=== PATIENT | male | born 1985 | race Caucasian/White ===

== ENCOUNTER 2017-08-06 19:01 | Emergency (ER) | payer OTHER ==
[2017-08-06 19:11] VITALS: RESP 16; TEMP 98.1
[2017-08-06] MEDS ORDERED: ONDANSETRON 4 MG/2 ML VIAL IVP ONE (19:23)
[2017-08-06] MEDS ORDERED: NS 1,000 ML IV ONE (19:23)
[2017-08-06] MEDS ORDERED: IOPAMIDOL (ISOVUE-300) 100 ML BTL ONE ×2 (19:27→19:57)
--- NOTE | 2017-08-06 19:27 | EDPHY ---
H & P Time Seen by Provider: 08/06/17 19:15 HPI/ROS: CHIEF COMPLAINT: Left lower quadrant abdominal pain HISTORY OF PRESENT ILLNESS: The patient is a 31-year-old male with a history abdominal pain over the past few months. He initially had right lower quadrant abdominal pain. Last week he was evaluated with ultrasound and blood work which were both negative. 2 days ago he developed left lower quadrant pain. His doctor diagnosed him with possible diverticulitis and started on ciprofloxacin and Flagyl. He has had 1 previous reported episode of diverticulitis. This was diagnosed clinically. The patient denies fevers or chills. He has had no vomiting. He reports mild nausea but thinks this is secondary to the antibiotics. He has had no blood in his stool. No dark or target stool. REVIEW OF SYSTEMS: My complete review of systems is negative except as mentioned in the HPI. Past Medical/Surgical History: Includes diverticulitis Past surgical history: Negative Social history: The patient does not smoke. Smoking Status: Never smoked Physical Exam: 36.7, 142/94, 100, 16, 91% on room air GENERAL: Well-appearing, in no acute distress, alert. HEENT: Eyes normal to inspection, normal pharynx, no signs of dehydration. NECK: No thyromegaly, no lymphadenopathy, supple. RESPIRATORY: Clear to auscultation bilaterally, no rales, rhonchi or wheezing. CVS: Regular rate and rhythm, no rubs, murmurs, or gallops. ABDOMEN: Soft, left lower quadrant pain with no rebound or guarding, nondistended, no organomegaly. BACK: Normal to inspection, no CVA tenderness. SKIN: Normal color, no rash, warm, dry. No pallor. EXTREMITIES: No pedal edema, no calf tenderness, no Homans sign or cords, no joint swelling. NEURO/PSYCH: Alert and oriented, normal mood and affect, normal motor sensory exam. Constitutional: Initial Vital Signs Temperature (C) 36.7 C 08/06/17 19:07 Heart Rate 100 08/06/17 19:07 Respiratory Rate 16 08/06/17 19:07 Blood Pressure 142/94 H 08/06/17 19:07 O2 Sat (%) 91 L 08/06/17 19:07 O2 Delivery Mode Room Air Allergies/Adverse Reactions: No Known Allergies Allergy (Unverified 08/06/17 19:07) Home Medications: Medication Instructions Recorded Cipro 08/06/17 Clobetasol Propionate 08/06/17 Metronidazole 08/06/17 Medical Decision Making - Diagnostics Imaging Results: Imaging Impressions Abdomen/Pelvis CT 08/06/17 19:24 Impression: 1. Mild diverticulitis distal descending colon proximal sigmoid colon at the level of the iliac crest on the left. 2. Uncomplicated diverticula are seen throughout the colon otherwise. Findings discussed with Cinda Cullen M.D. at 20:24 hour, 08/06/2017. ED Course/Re-evaluation: In the emergency department I discussed possible etiologies with the patient. I answered all his questions. IV was placed. Patient was given normal saline 1 L IV for hydration. He is given Zofran 4 mg IV for nausea and morphine 4 mg IV for pain control. The laboratory studies and CT scan were ordered. Patient's white count was elevated at 12. The chemistry panel was notable for an elevated creatinine of 1.7. BUN was normal. Because of the elevated creatinine patient's CT scan was switched from IV contrast to noncontrast study. CT of the abdomen pelvis: Please refer the dictated report by Dr. Washington Evans. Patient does have mild diverticulitis. No abscess or fistula. No other abnormality. I discussed the results with the patient. I answered all his questions. He will continue the Cipro and Flagyl. The patient was made aware of his elevated creatinine 1.7. I instructed that his primary care physician needs to follow up on this value. The patient was given warnings prior to leaving. He will return with worsening symptoms. Differential Diagnosis: My differential includes but is not limited to diverticulitis, diverticular abscess, obstruction, perforation, volvulus - Data Points Laboratory Results: Laboratory Results 08/06/17 19:15 08/06/17 19:15 08/06/17 08/06/17 08/06/17 20:10 19:15 19:15 WBC 12.13 10^3/uL H 10^3/uL (3.80-9.50) RBC 4.95 10^6/uL 10^6/uL (4.40-6.38) Hgb 15.8 g/dL g/dL (13.7-17.5) Hct 45.6 % % (40.0-51.0) MCV 92.1 fL fL (81.5-99.8) MCH 31.9 pg pg (27.9-34.1) MCHC 34.6 g/dL g/dL (32.4-36.7) RDW 12.6 % % (11.5-15.2) Plt Count 193 10^3/uL 10^3/uL (150-400) MPV 9.3 fL fL (8.7-11.7) Neut % (Auto) 73.1 % % (39.3-74.2) Lymph % (Auto) 16.4 % % (15.0-45.0) Roosevelt % (Auto) 8.8 % % (4.5-13.0) Eos % (Auto) 0.9 % % (0.6-7.6) Baso % (Auto) 0.4 % % (0.3-1.7) Nucleat RBC Rel Count 0.0 % % (0.0-0.2) Absolute Neuts (auto) 8.86 10^3/uL H 10^3/uL (1.70-6.50) Absolute Lymphs (auto) 1.99 10^3/uL 10^3/uL (1.00-3.00) Absolute Monos (auto) 1.07 10^3/uL H 10^3/uL (0.30-0.80) Absolute Eos (auto) 0.11 10^3/uL 10^3/uL (0.03-0.40) Absolute Basos (auto) 0.05 10^3/uL 10^3/uL (0.02-0.10) Absolute Nucleated RBC 0.00 10^3/uL 10^3/uL (0-0.01) Immature Gran % 0.4 % % (0.0-1.1) Immature Gran # 0.05 10^3/uL 10^3/uL (0.00-0.10) Sodium 140 mEq/L mEq/L (135-145) Potassium 3.9 mEq/L mEq/L (3.5-5.2) Chloride 103 mEq/L mEq/L (97-110) Carbon Dioxide 25 mEq/l mEq/l (22-31) Anion Gap 12 mEq/L mEq/L (8-16) BUN 19 mg/dL mg/dL (7-23) Creatinine 1.7 mg/dL H mg/dL (0.7-1.3) Estimated GFR 47 Glucose 97 mg/dL mg/dL (70-100) Calcium 9.3 mg/dL mg/dL (8.5-10.4) Urine Color PALE YELLOW Urine Appearance CLEAR Urine pH 5.0 (5.0-7.5) Ur Specific Keyes 1.004 (1.002-1.030) Urine Protein NEGATIVE (NEGATIVE) Urine Ketones NEGATIVE (NEGATIVE) Urine Blood 2+ H (NEGATIVE) Urine Nitrate NEGATIVE (NEGATIVE) Urine Bilirubin NEGATIVE (NEGATIVE) Urine Urobilinogen NEGATIVE EU EU (0.2-1.0) Ur Leukocyte Esterase NEGATIVE (NEGATIVE) Urine RBC 1-3 /hpf /hpf (0-3) Urine WBC 1-3 /hpf /hpf (0-3) Ur Epithelial Cells NONE SEEN /lpf /lpf (NONE-1+) Urine Mucus TRACE /lpf /lpf (NONE-1+) Urine Glucose NEGATIVE (NEGATIVE) Medications Given: Discontinued Medications Hydrocodone Bitart/Acetaminophen (Dol[place] 5/325mg Prepack#6) 1 btl TAKEHOME EDNOW ONE Stop: 08/06/17 20:40 Last Admin: 08/06/17 20:42 Dose: 1 btl Sodium Chloride (Ns) 1,000 mls @ 0 mls/hr IV EDNOW ONE; Wide Open PRN Reason: Protocol Stop: 08/06/17 19:24 Last Admin: 08/06/17 19:33 Dose: 1,000 mls Morphine Sulfate (Morphine) 4 mg IVP EDNOW ONE Stop: 08/06/17 19:24 Last Admin: 08/06/17 20:06 Dose: 4 mg Ondansetron HCl (Zofran) 4 mg IVP EDNOW ONE Stop: 08/06/17 19:24 Last Admin: 08/06/17 19:33 Dose: 4 mg Departure - Departure Disposition: Home, Routine, Self-Care Clinical Impression: Diverticulitis Abdominal pain Qualifiers: Abdominal location: left lower quadrant Qualified Code(s): R10.32 - Left lower quadrant pain Condition: Good Instructions: Hydrocodone/Acetaminophen (By mouth), Abdominal Pain (ED) Additional Instructions: Your CT scan showed diverticulitis with no complication. Your labs were remarkable for an elevated creatinine of 1.7. This will need to be followed-up by your primary care physician. Continue to take your antibiotics as directed. Take the entire course. Referrals: JURGEN COONEY [Non Staff Provider ()] - 1-2 days without fail
[2017-08-06 19:36] LABS: PLATELET COUNT 193 10^3/uL (150-400)
[2017-08-06] MEDS ORDERED: HYDROCOD/APAP 5/325 PREPACK#6 BTL TAKEHOME ONE (20:39)
[2017-08-06 20:49] VITALS: BP 147/104; PULSE 90; O2SAT 95
== END 2017-08-06 20:46 | disposition home or self-care (01) ==
DX: K57.92 Diverticulitis of intestine, part unspecified, without perforation or abscess without bleeding (principal); E86.9 Volume depletion, unspecified
CPT/HCPCS: 96374; J2270; J2405; Q9967